=== PATIENT | male | born 1955 | race Caucasian/White ===

== ENCOUNTER 2023-01-19 09:55 | Outpatient (CLI) | payer BC, SELFPAY | END 2023-01-19 09:56 | disposition home or self-care (01) | LOC: NFLDREF 09:57 | PROVIDERS: PCP Family Medicine; Visit Provider Internal Medicine | DX: R06.02 Shortness of breath (principal) | CPT/HCPCS: 85379 ==

== ENCOUNTER 2024-02-24 09:55 | Outpatient (CLI) | payer BC, SELFPAY | END 2024-02-24 09:56 | disposition home or self-care (01) | PROVIDERS: PCP Family Medicine; Visit Provider Family Medicine | DX: E55.9 Vitamin D deficiency, unspecified (principal); R53.83 Other fatigue; Z12.5 Encounter for screening for malignant neoplasm of prostate; Z13.6 Encounter for screening for cardiovascular disorders | CPT/HCPCS: 80048; 80061; G0103 ==

== ENCOUNTER 2024-03-07 09:34 | Outpatient (CLI) | payer BC, SELFPAY ==
--- NOTE | 2024-03-07 12:02 | W.ANESCHARGE ---
Anesthesia Charges Start Date/Time Anesthesia Start Date: 03/07/24 Anesthesia Start Time: 11:34 Stop Date/Time Anesthesia Stop Date: 03/07/24 Anesthesia Stop Time: 12:08
--- NOTE | 2024-03-07 12:04 | W.ANESCHARGE ---
Anesthesia Charges Start Date/Time Anesthesia Start Date: 03/07/24 Anesthesia Start Time: 11:34 Stop Date/Time Anesthesia Stop Date: 03/07/24 Anesthesia Stop Time: 12:08
== END 2024-03-07 09:35 | disposition home or self-care (01) ==
LOC: OP CLINIC 09:36
PROVIDERS: PCP Family Medicine; Visit Provider Surgery
DX: Z12.11 Encounter for screening for malignant neoplasm of colon (principal); D12.8 Benign neoplasm of rectum; Z80.0 Family history of malignant neoplasm of digestive organs
CPT/HCPCS: 00811; 45385; 88305; J2704

== ENCOUNTER 2024-10-06 03:56 | Emergency (ER) | payer MEDICARE, BC, SELFPAY ==
[2024-10-06] VITALS (8 sets, daily range): BP systolic 128–160; BP diastolic 74–86; PULSE 91–113; RESP 14–23; TEMP 36.6–36.7; O2SAT 96–99; BMI 28.9
--- OUTSIDE RECORDS SUMMARY | 2024-10-06 03:59 | XMS_ITS | Clinical Summary ---
Author Organization [facility] Address [address] [place] [id number] Care Team Providers Care Systematic Theology Professor Name Role Phone Ashish Ellis MD Primary Care Provider [phone] Allergies Active Allergy Reactions Criticality Noted Date Comments Cat Dander Shortness Of Breath 03/26/2018 Dog Dander Shortness Of Breath 03/26/2018 House Dust Shortness Of Breath Pollen Extracts Itching 03/26/2018 Medications fluticasone (50 mcg per actuation) nasal solution (FLONASE)Indicat ions:Allergic rhinitis, unspecified allergic rhinitis trigger, unspecified rhinitis seasonality Inhale 1 [place] into both nostrils once daily. 1 Bottle 3 7 Active sildenafil, antihypertensive , (REVATIO) 20 mg tabletIndication s:Erectile dysfunction, unspecified erectile dysfunction type TAKE 1/2 TO 2 TABLETS BY MOUTH NEEDED FOR ERECTILE DYSFUNCTION 100 tablet 3 8 Active albuterol HFA (VENTOLIN HFA) 90 mcg/actuation inhalerIndicatio ns:Mild intermittent asthma without complication (HC) Inhale 1-2 Puffs by mouth every 4 hours if needed. 18 g 5 8 Active Active Problems Problem Noted Date Diagnosed Date Family history of malignant neoplasm of gastrointestinal tract 02/28/2011 Overview (02/28/2011): Colonoscopy 02/2011 normal repeat in 5 years Impotence of organic origin 01/15/2011 Asymptomatic varicose veins 12/14/2007 Unspecified asthma(493.90) 12/14/2007 Allergic rhinitis, cause unspecified 08/05/2006 Overview (01/15/2011): Suggest nasal saline Resolved Problems Problem Noted Date Diagnosed Date Resolved Date Routine general medical exam ination at a health care facility 12/14/2007 05/06/2013 Overview (12/14/2007): Colonoscopy 09/2005 Recheck 5 yrs 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 01/15/2011 Unspecified asthma(493.90) 08/05/2006 0 09/15/2006 Immunizations Immunization Administration Dates Next Due AMB Influenza, IIV4 PF (=>6 mos Flulaval,Fluzone Fluarix)(Flu Clinic Only) 02/25/2018 COVID-19 vaccine (Adam-J& J) PF, MDV 07/07/2020 COVID-19 vaccine (Moderna Donovan lance 50mcg/0.25mL) PF, MDV 03/04/2021 HepA-HepB (Twinrix) 12/18/2006,09/16/20062006 Inactivated Polio Vaccine 09/16/2006 Influenza, IIV3 (Age >=3 years) 05/06/19 14,01/15/2011,09/16/2006,03/14 Influenza, Inactivated AIIV4 (Age 65+ Years) Preserv Free 03/04/2021 Pneumococcal conj 13-Valent (Prevnar 13) 03/26/2018 Td (Age >=7 Years) 11/03/2005 Tdap 01/15/2011 Typhoid (injectable) 09/16/2006 Family History Medical History Relation Name Comments Hypertension Father Samson Other Father Samson trouble with sw allowing/HI age 71/Lewy body dementia Alzheimer's disease Maternal Grandfather Alzheimer's disease Maternal Grandmother Alzheimer's disease Mother Oksana Sand Arthritis Mother Oksana Sand Cancer Mother Oksana Sand Skin Cancer-colon Mother Oksana Sand age 70 Other Mother Oksana Sand trouble with sw allowing Anesthesia Problem No Family History Blood Disease No Family History Relation Name Status Comments Father Samson Alive Maternal Grandfather Maternal Grandmother Mother Oksana Sand Alive Sister Noemí Alive Social History Tobacco Use Types Packs/Day Years Used Date Smoking Tobacco: Light Smoker Smokeless Tobacco: Never Tobacco Cessation:Counseling Given: Yes Comments:1 cigar every 4-5 months Alcohol Use Standard Drinks/Week Comments Yes 0 (1 standard drink = 0.6 oz pur e alcohol) 1-2 drinks per day PHQ-2 Answer Date Recorded PHQ-2 Score 0 06/26/2018 Sex and Gender Information Value Date Recorded Sex Assigned at Not on file Legal Sex Male 5:24 AM [employer] Gender Identity Not on file Sexual Orientation Not on file Occupation Industry Job Start Date Job End Date Professor Not on file Not on file Not on file Obstetrics History Last Filed Vital Signs Vital Sign Reading Time Taken Comments Blood Pressure 117/73 03/26/2018 1:10 PM [employer] Pulse 91 03/26/2018 1:10 PM [employer] Temperature 36.5 C (97.7 F) 03/26/2018 1:10 PM [employer] Respiratory Rate - - Oxygen Saturation 95% 03/26/2018 1:10 PM [employer] Inhaled Oxygen Concentration - - Weight 90.3 kg (199 lb 1.6 oz) 03/26/2018 1:10 P M [employer] Height 173.4 cm (5' 8.27) 03/26/2018 1:10 PM CS T Body Mass Index 30.04 03/26/2018 1:10 PM [employer] Plan of Treatment Health Maintenance Due Date Last Done Comments Zoster (shingles) series for age 50+ (1 of 2) 2005 Hepatitis B series for 19+ ( 3 of 3 - Hep B Twinrix 3-dose series) 05/20/2007 12/18/2006, 09/16/2006 Colonoscopy through age 75 02/29/2016 02/28/2011 BMI (ht and wt on same day) for age 18+ 03/26/2019 03/26/2018, 05/08/2016 Depression screening for age 12+ 03/26/2019 03/26/2018, 05/08/2016, 05/08/2016 Pneumococcal series for age 50+ (2 of 2 - PPSV23) 03/26/2019 03/26/2018 Tetanus booster 01/15/2021 01/15/2011, 11/03/2005 Lipids for age 45-75 03/26/2023 03/26/2018, 10/19/2014, 05/06/2013, Additional history exists COVID-19 vaccine series ( season) 2023 02/18/2023, 03/04/2021, 07/07/2020 Influenza Vaccine (Season Ended) 2024 03/04/2021, 02/25/2018, 05/06/2013, Additional history exists RSV vaccine for adults or (1 - 1-dose 75+ series) 2030 Tdap Completed 01/15/2011 Hepatitis C screening for ag e 18-79 Completed 10/19/2014 Procedures Procedure Name Priority Date/Time Associated Diagnosis Comments LIPID PANEL W REFLEX MEASURED LDL Routine 03/26/2018 2:19 PM [employer] Screening cholesterol level ANTI HCV Routine 10/19/2014 10:43 AM CDT Need for hepatitis C screening test from Last 3 Months or Most Recently Relevant to Health Maintenance Results * (ABNORMAL) LIPID PANEL W REFLEX MEASURED LDL (03/26/2018 2:19 PM [employer]) CHOLESTEROL,TOTAL 208(H) 100 - 199 mg/dL 03/27/2018 2:33 AM [employer] [facility] TRIGLYCERIDES 108 <150 mg/dL 03/27/2018 2:33 AM [employer] [facility] HDL CHOLESTEROL 56 >40 mg/dL 8 2:33 AM [employer] [facility] NON-HDL CHOLESTEROL 152(H) <145 mg/dl 03/27/2018 2:33 AM [employer] [facility] CHOL/HDL RATIO 3.71 <4.50 03/27/2018 2:33 AM [employer] [facility] LDL CHOLESTEROL 130 <=130 mg/dL 03/27/2018 2:33 AM [employer] [facility] PROVIDER ORDERED STATUS RANDOM 03/27/2018 2:33 AM [employer] [facility] Blood BLOOD SPECIMEN / Unknown Venipuncture / Unknown 03/26/2018 2:19 PM [employer] 03/26/2018 2:19 PM [employer] us Ashish Ellis MD CHEMISTRY Final Resu lt [facility] [address] [place] [address], [place] * ANTI HCV [[id number]] (10/19/2014 10:43 AM CDT) HEPATITIS C ANTIBODY Non-Reacti ve Non-Reacti ve 10/19/2014 4:28 PM CDT [facility] Blood specimen (specimen) BLOOD SPECIMEN / Unknown Venipuncture / Unknown 10/19/2014 10:43 AM CDT 10/19/2014 10:43 AM CDT Narrative [facility] - 10/19/2014 4:28 PM CDT Antibodies to HCV not detected; does not exclude the possibility of exposure to HCV. us Ashish Ellis MD SEND OUTS Final Resu lt [facility] [address] [place] [address], from Last 3 Months or Most Recently Relevant to Health Maintenance Insurance [facility] Care Teams Systematic Theology Professor Relationship Specialty Start Date End Date Ashish Ellis MD [address] [place] [address] PCP - General Family Practice 04/29/13
--- NOTE | 2024-10-06 04:15 | CRLHL7_ITS ---
For Patients: As a result of the Century Cures Act, medical imaging exams and procedure reports are released immediately into your electronic medical record. You may view this report before your referring provider. If you have questions, please contact your health care provider. INDICATION: New onset AFib, patient reports palpitations and arrhythmia for 6 months COMPARISON: 01/19/2023 TECHNIQUE: PA and lateral 2 view chest. FINDINGS: Lung volumes are moderate. There is some crowding without any focal opacities. No pulmonary edema. No pleural effusion. No pneumothorax. No pneumomediastinum. Normal cardiomediastinal silhouette. Bones: Very minimal superior endplate wedging of T7 and T11 are about the same as the prior exam. IMPRESSION: Lungs clear. No acute findings. Dictated by Natalie Correa MD @ 10/06/2024 4:54:43 AM (Electronically Signed)
[2024-10-06] MEDS: 0.9 % SODIUM CHLORIDE 500 ML 500 ML IV (04:20)
[2024-10-06] MEDS: dilTIAZem 5 MG/ML inj 10 MG IVP (04:20)
--- NOTE | 2024-10-06 04:24 | ED_ITS ---
HPI - General Adult General Chief complaint: Arrhythmia/Palpitations Stated complaint: afib Time Seen by Provider: 10/06/24 04:05 Source: patient Mode of arrival: ambulatory Limitations: no limitations History of Present Illness HPI narrative: 69-year-old male with no prior history of coronary artery disease or arrhythmia presents to the emergency department with about 1 hour history of fast, irregular heart rate. Apple watch told him that he is likely in AFib. This has actually been happening several times since March, has not sought medical care. Not anticoagulated. No chest pain or severe shortness of breath. No recent stress testing, ECHO or other similar workup. No prior diagnosis of any other similar condition. No new trauma or injury. Does have a history of asthma, takes inhalers as needed. Denies drug allergies. No other long-term health problems like hypertension, diabetes or other risk factors for complication. No prior stroke history. Did not try any interventions prior to coming to ED. Past medical history notable for mild persistent asthma, otherwise denies times 12 systems. No known drug allergies. Long-term medications are steroid inhaler and p.r.n. albuterol. Nonsmoker. ROS is notable for the cardiac symptoms as described above, otherwise denies times 12 systems. Related Data Previous Rx's ?Medication ?Instructions ?Recorded albuterol sulfate 90 mcg/actuation 2 puff inhalation Q 4-6H PRN 02/24/24 aerosol inhaler shortness of breath or wheez ing #8.5 grams fluticasone 100 mcg-salmeterol 50 1 inh inhalation BID #60 ea 02/24/24 mcg/dose blistr powdr for inhalation (Advair Diskus) atenolol 25 mg tablet 25 mg PO DAILY #90 tabs 09/25 06/21 rivaroxaban 20 mg tablet (Xarelto) 20 mg PO DAILY #90 tabs 10/06/24 Allergies Allergy/AdvReac Type Severity Reaction Status Date / Time No Known Drug Allergies Allergy Verified 10/06/24 04:05 [facility] Medical History Asthma ?J45.909 - Unspecified asthma, uncomplicated (ICD-10) Mild persistent asthma ?J45.30 - Mild persistent asthma, uncomplicated (ICD-10) Bilateral sensorineural hearing loss ?H90.3 - Sensorineural hearing loss, bilateral (ICD-10) Anxiety ?F41.9 - Anxiety disorder, unspecified (ICD-10) Vitamin D deficiency ?E55.9 - Vitamin D deficiency, unspecified (ICD-10) Osteoarthritis of knee ?M17.9 - Osteoarthritis of knee, unspecified (ICD-10) Erectile dysfunction ?N52.9 - Male erectile dysfunction, unspecified (ICD-10) Allergic rhinitis ?J30.9 - Allergic rhinitis, unspecified (ICD-10) Surgical History History of colonoscopy ?Z98.890 - Other specified postprocedural states (ICD-10) History of nasal septoplasty ?Z98.890 - Other specified postprocedural states (ICD-10) History of esophageal dilatation (09/13/06) ?Z98.890 - Other specified postprocedural states (ICD-10) History of appendectomy ?Z90.49 - Acquired absence of other specified parts of digestive tract (ICD- 10) Family History Mother Colon cancer, Onset Age: 70 Father Coronary artery disease Sister Depression Social History Narrative: . 1 young child. Nonsmoker. 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 What is your current living situation?: I presently have a place to live Problems where you live: lead paint or pipes In the past 12 months, utilities in danger of being shut off: no In past 12 months, lack of transportation kept you from medical appts, meetings, work, or getting things needed for daily living: no In the past 12 mos, have been you worried that your food would run out before you had money to buy more?: never true In the past 12 mos, the food you bought just didn't last and you didn't have money to buy more?: never true Smoking Status: Never smoker Second hand tobacco smoke exposure: No How often do you have a drink containing alcohol: never AUDIT-C Alcohol total score: 0 Non-prescribed substance use: denies use How often does anyone, including family, friends and others, physically hurt you : never How often does anyone, including family, friends and others, insult or talk down to you: decline to answer How often does anyone, including family, friends and others, threaten you with harm: never How often does anyone, including family, friends and others, scream or curse at you: decline to answer Health Related Social Needs: Inadequate housing (Z59.1) Exam Const: Vital Signs, click to edit/add: Vital Signs - 24 hr 10/06/24 04:01 10/06/24 04:14 10/06/24 04:29 Temperature 97.9 F Pulse Rate 108 H 95 Pulse Rate [Left P ulse Oximeter] 113 H Respiratory Rate 18 20 14 Blood Pressure 153/86 H 139/86 Blood Pressure [Ri ght Upper Arm] 160/83 H Pulse Oximetry 99 98 99 Oxygen Delivery Me thod Room Air 10/06/24 04:35 10/06/24 04:45 Temperature 98.0 F Pulse Rate 93 Pulse Rate [Left P ulse Oximeter] Respiratory Rate 23 Blood Pressure 138/74 Blood Pressure [Ri ght Upper Arm] Pulse Oximetry 98 97 Oxygen Delivery Me thod Documenting provider has reviewed patient's vital signs: yes Common normals: no apparent distress and alert General appearance: cooperative, co mfortable and well kempt HENMT: Common normals: normocephalic and moist oral mucous membranes Head and scalp: normocephalic Mouth: oral and palatal mucosa normal Eye: Common normals: conjunctivae normal General eye: normal appearance of both eyes Conjunctiva: conjunctiva(e) normal Neck & C-Spine: General: normal visual inspection Chest: Common normals: inspection of chest normal Resp: Common normals: normal respiratory effort, no use of accessory muscles and clear to auscultation bilaterally Effort & inspection: able to speak in complete sentences Auscultation: clear to auscultation bilaterally Cardio: Other: Irregular heart rate, 110-120 at the time of my auscultation. No obvious murmur. GI: Common normals: Normal to inspection, nondistended, normoactive bowel sounds present, soft to palpation, non-tender, no hepatosplenomegaly and no masses Palpation: soft and no hepatosplenomegaly Extremity: Common normals: normal to inspection and no pedal edema Neuro: Common normals: moves all extremities Sensorium/orientation: alert Speech: speech normal Psych: Appearance: well kempt Attitude: engaged Activity/motor behavior: appropriate eye contact Mood and affect: euthymic mood Attention/concentration: attention grossly intact Memory/cognition: memory grossly intact Insight: insight good Judgement: judgment good Skin: Common normals: no rashes or lesions noted General skin exam: no rashes or lesions noted Course Course ED Course: 69-year-old male with 1 hour of atrial fibrillation but is history suggest that he has been having intermittent episodes for the past 6 months. Not an ideal candidate for cardioversion because of this. I recommended that we place a peripheral IV, typical cardiac labs to ensure for this happening. I would like to try 10 mg of diltiazem and 1 g of magnesium to see if this will cause him to naturally cardiovert. Based on his chads 2 score, age over 65 probably warrants anticoagulation. I do typically like to start Xarelto rather than just plain aspirin in this risk group especially since he has had quite a few episodes. Anticipate starting beta-reema therapy. Outpatient referral for echo and further workup that cannot be completed in the ED overnight. Await findings. Reevaluation(s) Time of Reevaluation #1: 05:02 Reevaluation #1: Counseled patient on findings. X-rays reassuring. About 5 minutes after the diltiazem was given, patient did spontaneously convert back to normal sinus rhythm. Repeat EKG is taken showing a heart rate of 92 with sinus rhythm. No significant ST or T-wave abnormalities otherwise. Slight left axis deviation noted. Patient is feeling back to normal. Remainder of labs are all reassuring as well. Counseled patient on treatment plan. 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 I do recommend that he start some sort of beta-reema to help reduce the risk of recurrent episodes and preserved cardiac function. 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 If he does not tolerate this from a respiratory perspective, alternatives can certainly be considered. Unfortunately, I do not have the ability to get an echo or other monitoring that I would like tonight. Patient will need this ordered through his outpatient provider. Consider Holter monitor as well but his fitness what can likely tell us if there are repeat episodes. Consider stress testing based on echo findings and symptomatology at follow-up appointment. All questions answered, written instructions provided. Vital Signs Vital signs: Initial Vital Signs Respiratory Effort Normal, Spontaneous, Non-Labored 10/06/24 03:56 Respiratory Depth Normal 10/06/24 03:56 Respiratory Pattern Normal 10/06/24 03:56 Vital Signs Temperature 97.9 F 10/06/24 04:01 Pulse Rate 113 H 10/06/24 04:01 Respiratory Rate 18 10/06/24 04:01 Blood Pressure 160/83 H 10/06/24 04:01 Pulse Oximetry 99 10/06/24 04:01 Oxygen Delivery Method Room Air 10/06/24 04:01 Temperature 98.0 F 10/06/24 04:45 Pulse Rate 93 10/06/24 04:45 Respiratory Rate 23 10/06/24 04:45 Blood Pressure 138/74 10/06/24 04:45 Pulse Oximetry 97 10/06/24 04:45 Oxygen Delivery Method Room Air 10/06/24 04:01 Medications Administered Medications: Generic Name Dose Route Start Last Admin Trade Name Freq PRN Reason Stop Dose Admin Magnesium Sulfate/Dextrose 1 gm in 100 mls @ 100 mls/hr 10/06/24 04:16 10/06/24 04:25 Magnesium Sulf 1 G/100 Ml-D5w IVPB 10/06/24 05:15 100 mls/hr ONCE ONE Administration Sodium Chloride 500 mls @ 500 mls/hr 10/06/24 04:17 10/06/24 04:20 0.9 % Sodium Chloride 500 Ml IV 10/06/24 05:16 500 mls/hr .Q1H FE Administration Discontinued Medications Generic Name Dose Route Start Last Admin Trade Name Freq PRN Reason Stop Dose Admin Diltiazem HCl 10 mg 10/06/24 04:15 10/06/24 04:20 Diltiazem 5 Mg/Ml Inj IVP 10/06/24 04:16 10 mg ONCE ONE Administration Medical Decision Making Lab Data Lab results reviewed: Yes I reviewed the patient's lab results Lab results narrative: Labs all reassuring. Labs: Lab Results 10/06/24 Range/Units 04:05 WBC 7.66 (4.50-11.00) K/uL RBC 5.02 (4.30-5.90) m/uL Hgb 14.8 (13.5-17.5) gm/dL Hct 44.7 (37.0-53.0) % MCV 89 (80-100) fL MCH 30 (26-34) pg MCHC 33 (32-36) gm/dL RDW Coeff of Jarrett 13.6 (11.5-15.5) % Plt Count 219 (140-440) K/uL Neut % (Auto) 49.7 (42.0-72.0) % Lymph % (Auto) 34.3 (20-44) % Coffey % (Auto) 10.7 (0.0-11.0) % Eos % (Auto) 4.3 (0.0-7.0) % Baso % (Auto) 0.7 (0.0-3.0) % Neut # (Auto) 3.81 (1.7-7.0) K/uL Lymph # (Auto) 2.63 (0.90-2.90) K/uL Coffey # (Auto) 0.80 (0.00-0.90) K/UL Eos # (Auto) 0.33 (0.00-0.50) K/uL Baso # (Auto) 0.05 (0.00-0.30) K/uL Abs Immat Gran (auto) 0.02 (0.00-0.30) K/uL Imm/Tot Granulo (auto) 0.3 % Sodium 139 (135-149) mmol/L Potassium 3.9 (3.6-5.1) mmol/L Chloride 105 (96-114) mmol/L Carbon Dioxide 24 (20-32) mmol/L Anion Gap 10 (7-15) mEq/L BUN 12 (7-30) mg/dL Creatinine 0.8 (0.5-1.5) mg/dL Estimated Creat Clear 67.45 Estimated GFR 96 ml/min Glucose 117 H (60-115) mg/dL Calcium 9.3 (8.4-10.6) mg/dL Magnesium 2.0 (1.5-2.6) mg/dL C-Reactive Protein < 0.5 L (0.5-1.0) mg/dL NT-Pro-B Natriuret Pep 83 (See Note) pg/mL POC Troponin I 0.01 (0.01-0.04) ng/ml Imaging Data Chest x-ray: Attestation: I have reviewed the pertinent imaging results. My impression: Normal chest x-ray. No heart failure, cardiac enlargement, pulmonary infiltrate or pneumothorax. Radiologist's impression: IMPRESSION: Lungs clear. No acute findings. Dictated by Natalie Correa MD @ 10/06/2024 4:54:43 AM ECG Data Prior ECG tracings: not available for review Interpretation: No prior EKG available. No P waves present, appears consistent with atrial fibrillation rate of about 120. Computer interpretation is atrial flutter which I do not agree with. There are no signs of ischemia or other ST or T-wave abnormalities. Rentz appears normal. Discharge Plan Discharge Clinical Impression: Atrial fibrillation Patient Disposition: Home, Self-Care Condition: Improved Instructions: A-fib (Atrial Fibrillation) (ED) Additional Instructions: As we discussed, your heart was in an episode of atrial fibrillation which is a common abnormal electrical pattern. Unfortunately, once you have this condition, your likely to have subsequent episodes. As discussed, there is risk of harm to the heart if the atrial fibrillation is too fast, straining the heart. But a greater risk comes from the increased risk of stroke. To reduce her risk of stroke, I do recommend starting a blood thinner. You fall in between the categories that would recommend plain aspirin versus Xarelto. I am recommending Xarelto for you at this time while we get further information through echo and heart monitoring. I would like for you to follow-up with your primary care doctor next week so he can recheck your heart rate on the new atenolol medication, confirmed that you are able to start the blood thinner as prescribed and do not need a different 1 sent based on your insurance. He will arrange an outpatient echo which is an ultrasound of the heart and possibly other further testing like a stress test. I would like for you to start a medication to slightly slow the heart but I want 1 that does not impairing her thinking or affect your asthma. I recommend trying atenolol, 25 mg once daily. If you have side effects, please follow-up with her primary care provider to discuss alternatives, as there are many. Continue using a fitness watch to help track your heart rate. As we discussed if your heart rate is staying persistently over 160 foreign hour, you really should come into the ED. It actually is okay for you to try taking 1 extra atenolol tablet if you have a fast heart rate, let us say over 140 persistently at rest, to try to kick yourself out of the AFib again. Any severe symptoms, chest pain, severe shortness of breath, etc. would warrant ER re-evaluation. Activity Level: No Restrictions Discharge Diet: Regular Prescriptions: New Xarelto 20 mg tablet 20 mg PO DAILY Qty: 90 3RF Rx Instructions: must administer with evening meal atenolol 25 mg tablet 25 mg PO DAILY Qty: 90 3RF No Action albuterol sulfate 90 mcg/actuation HFA aerosol inhaler 2 puff inhalation Q4-6H PRN (Reason: shortness of breath or wheezing) Qty: 8.5 3RF fluticasone propion-salmeterol [Advair Diskus] 100-50 mcg/dose blister with device 1 inh inhalation BID Qty: 60 12RF Follow Up/Referrals: Meng Cardoso MD [Primary Care Provider, Family Practice] Stand Alone Forms: [employer] Info Instructions
[2024-10-06 04:32] LABS: Basophils Absolute Auto 0.05 K/uL (0.00-0.30); Basophils Percent Auto 0.7 % (0.0-3.0); Eosinophils Absolute Auto 0.33 K/uL (0.00-0.50); Eosinophils Percent Auto 4.3 % (0.0-7.0); Hematocrit 44.7 % (37.0-53.0); Hemoglobin* 14.8 gm/dL (13.5-17.5); Immature Granulocytes Abs Auto 0.02 K/uL (0.00-0.30); Immature Granulocytes Pct Auto 0.3 %; Lymphocytes Absolute Auto 2.63 K/uL (0.90-2.90); Lymphocytes Percent Auto 34.3 % (20-44); Mean Corpuscular HGB Conc 33 gm/dL (32-36); Mean Corpuscular Hemoglobin 30 pg (26-34); Mean Corpuscular Volume 89 fL (80-100); Monocytes Percent Auto 10.7 % (0.0-11.0); Neutrophils Absolute Auto 3.81 K/uL (1.7-7.0); Neutrophils Percent Auto 49.7 % (42.0-72.0); Platelet Count* 219 K/uL (140-440); RDW Coefficient of Variation % 13.6 % (11.5-15.5); Red Blood Count 5.02 m/uL (4.30-5.90); White Blood Count* 7.66 K/uL (4.50-11.00)
[2024-10-06 04:34] LABS: Troponin, Point-of-Care* 0.01 ng/ml (0.01-0.04)
[2024-10-06 04:36] LABS: Slide Review Reflex No
[2024-10-06 04:38] LABS: Chloride* 105 mmol/L (96-114); Potassium* 3.9 mmol/L (3.6-5.1); Sodium* 139 mmol/L (135-149)
[2024-10-06 04:41] LABS: Blood Urea Nitrogen* 12 mg/dL (7-30); Creatinine* 0.8 mg/dL (0.5-1.5); Est. Creatinine Clearance* 67.45; Estimated Glomerular Filt Rate 96 ml/min
[2024-10-06 04:42] LABS: Anion Gap 10 mEq/L (7-15); Calcium* 9.3 mg/dL (8.4-10.6); Carbon Dioxide* 24 mmol/L (20-32); Glucose* 117 mg/dL (60-115)
[2024-10-06 04:51] LABS: C Reactive Protein* < 0.5 mg/dL (0.5-1.0); NT Pro B Type NatriureticPept* 83 pg/mL (See Note)
== END 2024-10-06 05:25 | disposition home or self-care (01) ==
PROVIDERS: Emergency Provider Family Medicine; PCP Family Medicine
DX: I48.91 Unspecified atrial fibrillation (principal)
CPT/HCPCS: 36415; 71046; 80048; 83735; 83880; 84484; 85025; 86140; 93005; 94761; 96365; 99284; J3475; J7030

== ENCOUNTER 2024-10-24 08:55 | Outpatient (CLI) | payer MEDICARE, BC, SELFPAY ==
[2024-10-24] MEDS: PERFLUTREN LIPID MICROSPHERES 2 ML VIAL IVP (10:15)
== END 2024-10-24 08:56 | disposition home or self-care (01) ==
LOC: RAD 08:56
PROVIDERS: PCP Family Medicine; Visit Provider Family Medicine
DX: I48.91 Unspecified atrial fibrillation (principal)
CPT/HCPCS: 93306; Q9957

== ENCOUNTER 2025-03-06 21:20 | Emergency (ER) | payer MEDICARE, BC, SELFPAY ==
--- NOTE | 2025-03-06 21:22 | ED.GENADULT ---
HPI - General Adult General Time Seen by Provider: 21:23 Date Seen: 03/06/25 Chief complaint: Extremity Pain/Injury, Upper Stated complaint: Possible R hand infection Time Seen by Provider: 03/06/25 21:22 Source: patient Mode of arrival: ambulatory Limitations: no limitations History of Present Illness HPI narrative: 70-year-old male who comes in today with concern of right finger injury. Patient says he scratched his finger yesterday, today was little red so put a Band-Aid on, took the Band-Aid off tonight and noticed drainage and some red streaking. no fever, chills, nausea, vomiting. Related Data Previous Rx's ?Medication ?Instructions ?Recorded fluticasone 100 mcg-salmeterol 50 1 inh inhalation BID #60 ea 02/24/24 mcg/dose blistr powdr for inhalation (Advair Diskus) atenolol 25 mg tablet 25 mg PO DAILY #90 tabs 10/06/24 rivaroxaban 20 mg tablet (Xarelto) 20 mg PO DAILY #90 tabs 10/06/24 albuterol sulfate 90 mcg/actuation 2 puff inhalation Q4-6H PRN 12/28/24 aerosol inhaler shortness of breath or wheezing #8.5 grams Allergies Allergy/AdvReac Type Severity Reaction Status Date / Time No Known Drug Allergies Allergy Verified 03/06/25 21:30 [facility] Medical History (Updated 03/06/25 @ 21:43 by Jose Angel Crook MD) Paroxysmal atrial fibrillation ?I48.0 - Paroxysmal atrial fibrillation (ICD-10) Asthma ?J45.909 - Unspecified asthma, uncomplicated (ICD-10) Mild persistent asthma ?J45.30 - Mild persistent asthma, uncomplicated (ICD-10) Bilateral sensorineural hearing loss ?H90.3 - Sensorineural hearing loss, bilateral (ICD-10) Anxiety ?F41.9 - Anxiety disorder, unspecified (ICD-10) Vitamin D deficiency ?E55.9 - Vitamin D deficiency, unspecified (ICD-10) Osteoarthritis of knee ?M17.9 - Osteoarthritis of knee, unspecified (ICD-10) Erectile dysfunction ?N52.9 - Male erectile dysfunction, unspecified (ICD-10) Allergic rhinitis ?J30.9 - Allergic rhinitis, unspecified (ICD-10) Surgical History History of colonoscopy ?Z98.890 - Other specified postprocedural states (ICD-10) History of nasal septoplasty ?Z98.890 - Other specified postprocedural states (ICD-10) History of esophageal dilatation (09/13/06) ?Z98.890 - Other specified postprocedural states (ICD-10) History of appendectomy ?Z90.49 - Acquired absence of other specified parts of digestive tract (ICD-10) Family History (Updated 10/11/24 @ 22:03 by Meng Cardoso MD) Mother Colon cancer, Onset Age: 70 Alzheimers disease Father Coronary artery disease High blood pressure Sister Depression Social History Narrative: . 1 young child. Nonsmoker. 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[employer] What is your current living situation?: I presently have a place to live Problems where you live: lead paint or pipes In the past 12 months, utilities in danger of being shut off: no In past 12 months, lack of transportation kept you from medical appts, meetings, work, or getting things needed for daily living: no In the past 12 mos, have been you worried that your food would run out before you had money to buy more?: never true In the past 12 mos, the food you bought just didn't last and you didn't have money to buy more?: never true Smoking Status: Never smoker Second hand tobacco smoke exposure: No How often do you have a drink containing alcohol: 4 or more times a week How many standard drinks containing alcohol do you have on a typical day: 1 or 2 How often do you have six or more drinks on one occasion: Less than monthly AUDIT-C Alcohol total score: 5 Non-prescribed substance use: denies use How often does anyone, including family, friends and others, physically hurt you: never How often does anyone, including family, friends and others, insult or talk down to you: decline to answer How often does anyone, including family, friends and others, threaten you with harm: never How often does anyone, including family, friends and others, scream or curse at you: decline to answer Health Related Social Needs: Inadequate housing (Z59.1) Exam Narrative: Exam Narrative: General: well nourished , NAD Head: Atraumatic and normocephalic ENT: External ears and external nose are normal Eyes: Conjunctiva clear, pupils are equal reactive, external ocular motions are intact Neck: Full spontaneous range of motion of the neck Lungs: No respiratory distress Musculoskeletal: No tenderness or deformity Neurologic: No gross focal neurologic deficits Skin: On the dorsum of the right index proximal phalanx there is a 4 cm hematoma with serous drainage, erythema swelling this area of tracking erythema over the index metacarpal to just proximal to the extensor crease of the wrist Psych: Mood and affect are appropriate Const: Vital Signs, click to edit/add: Vital Signs - 24 hr 03/06/25 21:25 Temperature 98.4 F Pulse Rate [Pulse Oximeter] 72 Respiratory Rate 18 Blood Pressure [Ri ght Forearm] 158/92 H Pulse Oximetry 99 Oxygen Delivery Me thod Room Air Course Course ED Course: Additional records reviewed: Primary care visit from September 2024 which was follow-up for atrial fibrillation, chronically anticoagulated on Xarelto Additional history from: Care impacted by: atrial fibrillation, anticoagulation Testing considered but not performed: See ED course patient seen examined, presents today with concern for an infected wound on the right index finger that started is a scratch. On exam, patient is finally stable with no fever tachycardia, there is hematoma on the dorsum of the index finger with tracking erythema proximally to about 4 cm proximal to the extensor crease of the wrist. Symptoms are most consistent with infected Abrasion. Patient was started on Augmentin and doxycycline. The hematoma was opened with a 15 blade and small amount of purulent drainage was obtained, no foreign body found. Vital Signs Vital signs: Initial Vital Signs Temperature 98.4 F 03/06/25 21:25 Temperature Source Temporal Artery Scan 03/06/25 21: Pulse Rate 72 03/06/25 21:25 Respiratory Rate 18 03/06/25 21:25 Blood Pressure 158/92 H 03/06/25 21: Blood Pressure Mean 114 H 03/06/25 21:25 Blood Pressure Position Sitting 03/06/25 21:25 Pulse Oximetry 99 03/06/25 21:25 Oxygen Delivery Method Room Air 03/06/25 21:25 Vital Signs Temperature 98.4 F 03/06/25 21:25 Pulse Rate 72 03/06/25 21:25 Respiratory Rate 18 03/06/25 21:25 Blood Pressure 158/92 H 03/06/25 21:25 Pulse Oximetry 99 03/06/25 21:25 Oxygen Delivery Method Room Air 03/06/25 21:25 Temperature 98.4 F 03/06/25 21:25 Pulse Rate 72 03/06/25 21:25 Respiratory Rate 18 03/06/25 21:25 Blood Pressure 158/92 H 03/06/25 21:25 Pulse Oximetry 99 03/06/25 21:25 Oxygen Delivery Method Room Air 03/06/25 21:25 Discharge Plan Discharge Clinical Impression: Infected finger laceration, Anticoagulant long-term use Patient Disposition: Home, Self-Care Instructions: Wound Infection (DC) Additional Instructions: Wash the area gently with soap and water daily Take antibiotics as prescribed Activity Level: No Restrictions Discharge Diet: Regular Prescriptions: No Action fluticasone propion-salmeterol [Advair Diskus] 100-50 mcg/dose blister with device 1 inh inhalation BID Qty: 60 12RF Xarelto 20 mg tablet 20 mg PO DAILY Qty: 90 3RF Rx Instructions: must administer with evening meal atenolol 25 mg tablet 25 mg PO DAILY Qty: 90 3RF albuterol sulfate 90 mcg/actuation HFA aerosol inhaler 2 puff inhalation Q4-6H PRN (Reason: shortness of breath or wheezing) Qty: 8.5 3RF Follow Up/Referrals: Meng Cardoso MD [Primary Care Provider, Family Practice] Stand Alone Forms: Shopping [employer] Info Instructions
--- OUTSIDE RECORDS SUMMARY | 2025-03-06 21:22 | XMS_ITS | Clinical Summary ---
Author Organization [facility] Address [address] [place] [id number] Care Team Providers Care Microstrategy Bi Developer Name Role Phone Unavailable Primary Care Provider Unavailabl e Allergies Active Allergy Reactions Criticality Noted Date Comments Cat Dander Shortness Of Breath 03/26/2018 Dog Dander Shortness Of Breath 03/26/2018 House Dust Shortness Of Breath Pollen Extracts Itching 03/26/2018 Medications fluticasone (50 mcg per actuation) nasal solution (FLONASE)Indicat ions:Allergic rhinitis, unspecified allergic rhinitis trigger, unspecified rhinitis seasonality Inhale 1 Bacova into both nostrils once daily. 1 Bottle [...] if needed. 18 g 5 8 Active rivaroxaban (XARELTO) 20 mg tabletIndication s:PAF (paroxysmal atrial fibrillation) (HC),VT (ventricular tachycardia) (HC) Take 1 Tablet (20 mg) by mouth once daily with evening meal. 90 Tablet 1 5 Active atenoloL (TENORMIN) 25 mg tabletIndication s:PAF (paroxysmal atrial fibrillation) (HC),VT (ventricular tachycardia) (HC) Take 1 Tablet (25 mg) by mouth once daily. 90 Tablet 1 5 Active Active Problems Problem Noted Date Diagnosed [...] 08/22/2007 01/15/2011 Unspecified asthma(493.90) 08/05/2006 0 09/15/2006 Encounters Date Type Department Care Team Description 01/06/2025 Telephone [facility] [place] [address] [facility] [address] [place] [address] Elias Curry MD Appointment 01/05/2025 9:30 AM CDT Office Visit [facility] [address] [place] [address] Jordin Rucker MD 01/05/2025 Telephone [facility] [place] [address] [facility] [address] [place] [address] Jordin Rucker MD Testing 01/04/2025 Travel 12/14/2024 Telephone [facility] [address] [place] [address] Ashish Ellis MD Referral (Audiological Evaluation); Hearing Problem from Last 3 Months Immunizations Immunization Administration Dates Next Due AMB Influenza, IIV4 PF (=>6 mos Flulaval,Fluzone Fluarix)(Flu Clinic Only) 02/25/2018 COVID-19 vaccine (Adam-J& J) JIGNESH BORGES 07/07/2020 COVID-19 vaccine (Moderna Donovan lance 50mcg/0.25mL) [...] Samson Other Father Samson trouble with sw allowing/[place] age 71/Lewy body dementia Alzheimer's disease Maternal Grandfather Alzheimer's disease Maternal Grandmother Alzheimer's disease Mother Oksana Sand Arthritis Mother Oksana Sand Cancer Mother Oksana Sand Skin Cancer-colon Mother Oksana Sand age 70 Other Mother Oksana Margarita trouble with sw allowing Anesthesia Problem No Family History Blood Disease No Family History Relation Name Status Comments Father Samson Alive Maternal Grandfather Maternal Grandmother Mother Oksana Margarita Alive Sister Noemí Alive Social History Tobacco [...] on file Legal 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 Gender Identity Not on file Sexual Orientation Not on file Occupation Industry Job Start Date Job End Date Professor Not on file Not on file Not on file Obstetrics History Last Filed Vital Signs Vital Sign Reading Time Taken Comments Blood Pressure 100/57 01/10/2025 10:55 AM CDT Pulse 68 01/10/2025 10:55 AM CDT Temperature 36.5 C (97.7 F) 03/26/2018 1:10 PM LINEWORKER Respiratory Rate - - Oxygen Saturation 100% 01/10/2025 10:55 AM CDT Inhaled Oxygen Concentration - - Weight 89 kg (196 lb 2 oz) 01/10/2025 10:55 AM C DT Height 172.7 cm (5' 8) 01/10/2025 10:55 AM CDT Body Mass Index 29.82 01/10/2025 10:55 AM CDT Plan of Treatment Health Maintenance Due Date Last Done Comments Zoster (shingles) series for age 50+ (1 of 2) 2005 Hepatitis B series for 19+ ( 3 of 3 - Hep B Twinrix 3-dose series) 05/20/2007 12/18/2006, 09/16/2006 Colonoscopy through age 75 02/29/2016 02/28/2011 Pneumococcal series for age 50+ (2 of 2 - PPSV23, PCV20, or PCV21) 05/21/2018 03/26/2018 Depression screening for age 12+ 03/26/2019 03/26/2018, 05/08/2016, 05/08/2016 Medicare Wellness for age 65+ 02/03/2020 Tetanus booster 01/15/2021 01/15/2011, 11/03/2005 Lipids for age 45-75 03/26/2023 03/26/2018, 10/19/2014, 05/06/2013, Additional history exists Influenza Vaccine (#1) 2024 , 02/25/2018, 05/06/2013, Additional history exists BMI (ht and wt on same day) for age 18+ 01/05/2026 01/05/2025, 03/26/2018, 05/08/2016 RSV vaccine for adults or (1 - 1-dose 75+ series) 2030 Hepatitis C screening for ag e 18-79 Completed 10/19/2014 Procedures Procedure Name Priority Date/Time Associated Diagnosis Comments LIPID PANEL W REFLEX MEASURED LDL Routine 03/26/2018 2:19 PM LINEWORKER Screening cholesterol level ANTI HCV Routine 10/19/2014 10:43 AM CDT Need for hepatitis C screening test from Last 3 Months or Most Recently Relevant to Health Maintenance Results * (ABNORMAL) LIPID PANEL W REFLEX MEASURED LDL (03/26/2018 2:19 PM LINEWORKER) CHOLESTEROL,TOTAL 208(H) 100 - 199 mg/dL 03/27/2018 2:33 AM LINEWORKER [facility] TRIGLYCERIDES 108 <150 mg/dL 03/27/2018 2:33 AM [facility] HDL CHOLESTEROL 56 >40 mg/dL 8 2:33 AM [facility] NON-HDL CHOLESTEROL 152(H) <145 mg/dl 03/27/2018 2:33 AM [facility] CHOL/HDL RATIO 3.71 <4.50 03/27/2018 2:33 AM [facility] LDL CHOLESTEROL 130 <=130 mg/dL 03/27/2018 2:33 AM [facility] PROVIDER ORDERED STATUS RANDOM 03/27/2018 2:33 AM [facility] Blood BLOOD SPECIMEN / Unknown Venipuncture / Unknown 03/26/2018 2:19 PM LINEWORKER 03/26/2018 2:19 PM LINEWORKER Ashish Ellis MD CHEMISTRY Final Resu lt [facility] [address] [place] [address], [place] * ANTI HCV [02064.2] (10/19/2014 10:43 AM CDT) Pathologist [facility] HEPATITIS C ANTIBODY Non-Reacti ve Non-Reacti ve 10/19/2014 4:28 PM CDT [facility] Blood specimen (specimen) BLOOD SPECIMEN / Unknown Venipuncture / Unknown 10/19/2014 10:43 AM CDT 10/19/2014 10:43 AM CDT Narrative [facility] - 10/19/2014 4:28 PM CDT Antibodies to HCV not detected; does not exclude the possibility of exposure to HCV. Ashish Ellis MD SEND OUTS Final Resu lt [facility] [address] [place] [address], from Last 3 Months or Most Recently Relevant to Health Maintenance Insurance [place] PB ONLY MEDICARE PART B HB ONLY
[2025-03-06 21:25] VITALS: BP 158/92; PULSE 72; RESP 18; TEMP 36.9; O2SAT 99; BMI 29.5
== END 2025-03-06 22:02 | disposition home or self-care (01) ==
LOC: ED 21:55
PROVIDERS: Emergency Provider Family Medicine; PCP Family Medicine
DX: S61.200A Unspecified open wound of right index finger without damage to nail, initial encounter (principal); L08.89 Other specified local infections of the skin and subcutaneous tissue; Z79.01 Long term (current) use of anticoagulants; X58.XXXA Exposure to other specified factors, initial encounter
CPT/HCPCS: 99284